=== PATIENT | female | born 1945 | race Caucasian/White ===

== ENCOUNTER 2020-05-14 12:51 | Outpatient (CLI) | payer MEDICARE, SELFPAY ==
--- NOTE | 2020-05-15 11:53 | WPDPFTINT ---
PFT Interpretation PFT Interpretation: This PFT met all criteria for ATS standards and reproducibility FEV/FVC post bronchodilator 94% of predicted FEV1 106% or 1.60 liters FVC 77% or 1.71 liters TLC 69% or 2.74 liters RV 56% RV/TLC 34% DLCO 46% or 8.6 liters when adjusted for alveolar volume but not adjusted for hemoglobin Flow volume loops showed a restrictive pattern Impression: A restrictive ventilatory defect is present. Clinical correlation is advised.
--- NOTE | 2020-05-15 11:55 | WPDSIXMINUTE ---
Six Minute Walk Six Minute Walk: The patients O2 sats started at 97% and dropped as low as 96% Total walk distance 363.36 meters conclusion: This patient does not qualify for home oxygen use
== END 2020-05-14 12:52 | disposition home or self-care (01) ==
LOC: ANHPFT 12:59
PROVIDERS: PCP Internal Medicine; Visit Provider Nurse Practitioner
DX: J84.9 Interstitial pulmonary disease, unspecified (principal)
CPT/HCPCS: 94060; 94618; 94726; 94729

== ENCOUNTER 2024-11-28 13:34 | Outpatient (CLI) | payer MEDICARE, SELFPAY ==
--- NOTE | ~2024-11-28 | XR_ITS ---
CHEST RADIOGRAPH, PA AND LATERAL CLINICAL HISTORY: Cough . COMPARISON: None available TECHNIQUE: PA and lateral views of the chest. FINDINGS The cardiomediastinal silhouette is unremarkable. Interstitial thickening is detected bilaterally, likely chronic. Peripheral honeycombing is suspected, right greater than left. The lungs are otherwise clear. IMPRESSION: Findings suggesting interstitial lung disease for which cross-sectional imaging (noncontrast enhanced CT examination of the chest) is suggested for further characterization, if the patient is clinically able. Reviewed, dictated and finalized at location A. BOX CHECKER IMPRESSION: Findings suggesting interstitial lung disease for which cross-sectional imaging (noncontrast enhanced CT examination of the chest) is suggested for further ch aracterization, if the patient is clinically able.
--- NOTE | ~2024-11-28 | XR_ITS ---
XR shoulder LT min 2V Ordering provider: Yuan Hale, History: . L shoulder pain . Comparison: None. FINDINGS: BONES: No acute fracture or dislocation. JOINT SPACES: The acromioclavicular joint shows mild osteoarthritic changes. The glenohumeral joint i s normal. SOFT TISSUES: Normal. IMPRESSION: No acute osseous abnormality left shoulder. Reviewed, dictated and finalized at location A. TE SENSING RESEARCH SCIENTIST
== END 2024-11-28 13:35 | disposition home or self-care (01) ==
PROVIDERS: PCP Internal Medicine; Visit Provider Internal Medicine
DX: M25.512 Pain in left shoulder (principal); R05.9 Cough, unspecified
CPT/HCPCS: 71046; 73030

== ENCOUNTER 2025-03-17 08:42 | Emergency (ER) | payer MEDICARE, SELFPAY ==
--- NOTE | ~2025-03-17 | CT_ITS ---
CT cervical spine wo con Ordering provider: Natalia Spence PA-C History: . left arm pain, possible radiculopathy, LUE pain post . Comparison: None. Technique: CT of the cervical spine was performed without contrast. Sagittal and coronal reformatted images were also obtained and reviewed. Automated exposure control and iterative reconstruction laly hnique were employed. The dose-length product was 184.44 mGy-cm. FINDINGS: VERTEBRAE: Minimal anterolisthesis at the level of C7-T1. Otherwise, No subluxation or acute fracture . The occipital condyles are intact. Degenerative changes of the spine. DISC SPACES: Narrowing of the disc C2-C3, C3-C4, C4-C5, C5-C6, C6-C7 and C7-T1. Multilevel facet join t disease. Multilevel uncovertebral joint osteoarthritic changes. Multilevel intervertebral foraminal narrowing. PARASPINOUS SOFT TISSUES: Normal. IMPRESSION: No acute osseous abnormality cervical spine. Multilevel degenerative disc disease. Reviewed, dictated and finalized at location A.
--- NOTE | ~2025-03-17 | XR_ITS ---
XR forearm LT 2V Ordering provider: Natalia Spence PA-C History: . pain . Comparison: None. FINDINGS: BONES: No acute fracture or dislocation. JOINT SPACES: Normal. SOFT TISSUES: Normal. IMPRESSION: No acute osseous abnormality left forearm. Reviewed, dictated and finalized at location A.
--- NOTE | ~2025-03-17 | XR_ITS ---
EXAMINATION: XR shoulder LT min 2V DATE: 03/17/2025 10:39 INDICATION: Left shoulder pain TECHNIQUE: AP internally and externally rotated, AP oblique externally rotated and axillary views of the left shoulder were obtained. COMPARISON: None FINDINGS: Mild upper thoracic levocurvature. Normal alignment at the left shoulder. No fracture. Glenohumeral joint is normal. Moderate acromioclavicular osteoarthritis with small inferiorly directed osteophytes at the lateral head of the clavicle. There is also a small heterotopic ossicle along the anterolater al margin of the acromion. Soft tissues are unremarkable. Coarse reticular opacities in the left lowe r lung zone suggestive of chronic interstitial lung disease. IMPRESSION: Moderate left acromioclavicular osteoarthritis. No acute osseous abnormality. Reviewed, dictated and finalized at location A.
--- NOTE | ~2025-03-17 | XR_ITS ---
EXAM/ PROCEDURE: XR humerus LT - 03/17/2025 10:25 CDT HISTORY: 80 years old Female with pain COMPARISON: None available TECHNIQUE: Three view(s) FINDINGS/ IMPRESSION: There are no fractures or dislocations.Joint space narrowing, subchondral sclerosis, subchondral cyst formation and osteophyte formation, compatible with [id number] osteoarthritis. Reviewed, dictated and finalized at location A.
[2025-03-17 08:59] VITALS: BP 136/90; PULSE 102; RESP 18; TEMP 36.2; O2SAT 100
--- NOTE | 2025-03-17 10:03 | PC.NURSE ---
patient ambulatory to bathroom and back to room. Natalia PARDO at bedside at this time.
[2025-03-17] MEDS: ACETAMINOPHEN 500 MG TABLET 1000 MG PO (10:45)
[2025-03-17] MEDS: LIDOCAINE 5% PATCH 1 PATCH TRANSDERM (10:45)
[2025-03-17] MEDS: CYCLOBENZAPRINE HCL 5 MG TABLET PO (10:45)
--- NOTE | 2025-03-17 10:48 | ED_ITS ---
HPI - Extremity Injury (Upper) General Chief Complaint: Extremity Injury, Upper Stated Complaint: L arm pain after pulling a chair Time Seen by Provider: 03/17/25 09:03 History of Present Illness HPI narrative: 80-year-old female presents to the emergency department for left upper extremity pain for the past day. Patient states yesterday she was attempting to scoot her chair in which she felt a ?pop? in her left upper humerus. She states since then she has been having pain to the medial aspect of the humerus and over the lateral aspect of the shoulder and humerus and dorsum of the forearm. She states her pain is worse with movement of her upper extremity, specifically her shoulder and better when she is at rest. She denies any neck pain but states she did have some pain from her shoulder that radiated to her left trapezius. She denies any chest pain or shortness of breath. She took Tylenol yesterday with improvement. She is not taking anything for pain today. She reports limited range of motion of the shoulder secondary to pain but is able to ?walk? her hand across her chest to anteriorly flex her shoulder and hold it in this position. Related Data Allergies Allergy/AdvReac Type Severity Reaction Status Date / Time acetaminophen (From Allergy Severe Nausea and Verified 03/17/25 09:04 Darvocet-N) Vomiting propoxyphene (From Allergy Severe Nausea and Verified 03/17/25 09:04 Darvocet-N) Vomiting Review of Systems Review of Systems: All systems reviewed & are unremarkable except as noted in HPI and below Exam Narrative: GENERAL: Well-appearing, well-nourished, and in no acute distress. HEAD: Normocephalic, atraumatic. EYES: EOMI. ENT: Nares clear, no rhinorrhea or epistaxis. Mucous membranes moist. NECK: No midline cervical spinous tenderness, crepitus, step-offs or deformities. Minimal tenderness to the left trapezius. CHEST: Clear to auscultation. No respiratory distress. HEART: Regular rate and rhythm. No murmur heard. Normal peripheral pulses. EXTREMITIES: LUE: No tenderness to palpation of the left upper extremity. No obvious deformity, edema or ecchymosis, compartments are soft. Full active and passive range of motion of elbow, wrist and all fingers without difficulty. Patient is able to perform the cross-body adduction test without difficulty. She has limited anterior shoulder flexion and abduction secondary to pain, however is able to anteriorly flexor shoulder when she fully adducts her roly ulder across her body. Sensation is intact throughout. Radial pulses 2+. Radial, median and ulnar nerves are intact. No warmth erythema to joints, no effusions SKIN: Warm, dry, no rash. NEURO: No focal deficits. Alert and oriented x3 Course Vital Signs Vital signs: Vital Signs Temperature 97.2 F L 03/17/25 08:59 Pulse Rate 102 H 03/17/25 08:59 Respiratory Rate 18 03/17/25 08:59 Blood Pressure 136/90 03/17/25 08:59 Pulse Oximetry 100 03/17/25 08:59 Temperature 97.2 F L 03/17/25 08:59 Pulse Rate 102 H 03/17/25 08:59 Respiratory Rate 18 03/17/25 08:59 Blood Pressure 136/90 03/17/25 08:59 Pulse Oximetry 100 03/17/25 08:59 MDM - Extremity Injury (Upper) MDM Narrative Medical decision making narrative: 80-year-old female presents emergency department for left upper extremity pain after an injury that occurred yesterday. See HPI for further history. Vitals are stable. Exam is notable for the above. Notably patient has no significant tenderness to the left upper extremity but does have limited range of motion of shoulder secondary to pain. She is neurovascularly intact. Differential diagnosis includes fracture versus strain verses shoulder impingement versus cervical radiculopathy versus rotator cuff injury CT cervical spine shows no acute osseous abnormality, there is multilevel degenerative disc disease. X-ray of the shoulder shows moderate left acromioclavicular osteoarthritis with no acute osseous abnormality. X-ray of the forearm is unremarkable. X-ray of the humerus shows evidence of arthritis. Patient and daughter at bedside updated on results. I suspect symptoms are due to and to the rotator cuff versus shoulder impingement. Patient was given Tylenol Flexeril lidocaine patch and placed in a sling for comfort. She was advised to follow-up with orthopedics. Discussed strict ED return precautions. She is agreeable to plan verbalized understanding. Discharged in stable condition. Discharge Plan Discharge Clinical Impression: Acute pain of left shoulder Patient Disposition: Home Condition: Stable Instructions: Antibiotic Form, Shoulder Pain (ED) Additional Instructions: Your evaluated in the emergency department for left upper extremity pain. I suspect to have a rotator cuff injury or shoulder impingement to her left shoulder. Please wear the sling and follow-up closely with the orthopedist. Try to range her shoulder several times a day to help prevent frozen shoulder. Take the medications as needed as prescribed. Return to the emergency department if you develop chest pain shortness of breath, fever or other concerning symptoms. Patient Language: Kyrgyz Sign Language Prescriptions: New cyclobenzaprine 5 mg tablet 5 mg PO TID PRN (Reason: muscle spasm) Qty: 10 0RF acetaminophen 500 mg capsule 500 mg PO Q6H PRN (Reason: pain) Qty: 14 0RF lidocaine 5 % adhesive patch,medicated 1 patch topical DAILY Qty: 15 0RF Rx Instructions: leave on most painful area for up to 12 hrs. do not use more than 1 patch in a 24-hour period. Follow-up/Referrals: Geoffrey,MD Yuan [Primary Care Provider] - Juan Jain MD [Physician] -
[2025-03-17 11:38] VITALS: BP 140/88; PULSE 80; RESP 16; O2SAT 99
== END 2025-03-17 11:40 | disposition home or self-care (01) ==
PROVIDERS: Emergency Provider Physician Assistant; PCP Internal Medicine
DX: M25.512 Pain in left shoulder (principal)
CPT/HCPCS: 72125; 73030; 73060; 73090; 99284; A4565; A9270